=== PATIENT | male | born 1965 | race Caucasian/White ===

== ENCOUNTER 2020-06-16 13:33 | Outpatient (CLI) | payer OTHER ==
[~2020-06-16] VITALS: Ht 193 cm; Wt 109.1 kg
[2020-06-16 13:30] VITALS: BP 160/86
[2020-06-16] MEDS ORDERED: diphenhydrAMINE 50 MG/ML INJ (BENADRYL) IV PRN (14:00)
[2020-06-16] MEDS ORDERED: BAMLANIVIMAB (NON FORM) 700 MG in NS (IVPB) 100 ML IV ONE (14:00)
[2020-06-16] MEDS ORDERED: EPINEPHrine INJECTION 1 MG/ML AMP IM PRN (14:00)
[2020-06-16 15:30] VITALS: BP 165/87
== END 2020-06-16 15:30 | disposition home or self-care (01) ==
LOC: INFUSION 13:33
PROVIDERS: ATTEND Nurse Practitioner Family
DX: Z23 Encounter for immunization (principal); U07.1 COVID-19